=== PATIENT | male | born 1980 | race Caucasian/White ===

== ENCOUNTER 2016-09-10 23:21 | Emergency (ER) | payer OTHER ==
[~2016-09-10] VITALS: Ht 175.3 cm; Wt 86.2 kg
[2016-09-10 23:30] VITALS: BP 128/76
--- NOTE | 2016-09-11 00:16 | NUR ---
TO ER BED 1
--- NOTE | 2016-09-11 00:20 | NUR ---
36/M BIB FAMILY C/O RIGHT SHOULDER PAIN x 2200. PT STATES HE WAS PLAYING SOCCER AND LANDED ON RIGHT SHOULDER. LIMITED ROM, CAP REFILL 3<SEC. PT DENIES KO OR LOC; SKIN IS PINK/WARM/DRY; AAOX4 WITH EVEN AND STEADY GAIT; LUNGS CLEAR BL; HR EVEN AND REGULAR; PT DENIES ANY FEVER, CP, SOB, OR COUGH AT THIS TIME; PATIENT STATES PAIN OF 10/10 AT THIS TIME; VSS; PATIENT POSITIONED FOR COMFORT; HOB ELEVATED; BEDRAILS UP X2; BED DOWN. ER MD MADE AWARE OF PT STATUS.
--- NOTE | 2016-09-11 00:29 | NUR ---
Patient being evaluated by physician at bedside.
[2016-09-11] MEDS ORDERED: KETOROLAC 60 MG/2 ML VIAL IM ONE (00:35)
[2016-09-11 00:56] VITALS: BP 128/76
--- NOTE | 2016-09-11 00:58 | NUR ---
Patient discharged with v/s stable. Written and verbal after care instructions given and explained. Patient alert, oriented and verbalized understanding of instructions. Ambulatory with steady gait. All questions addressed prior to discharge. ID band removed. Patient advised to follow up with PMD. Rx of MOTRIN 800 MG given. Patient educated on indication of medication including possible reaction and side effects. Opportunity to ask questions provided and answered.
== END 2016-09-11 00:58 | disposition home or self-care (01) ==
LOC: MED 23:21
PROC: 3E033GC Introduction of Other Therapeutic Substance into Peripheral Vein, Percutaneous Approach (ICD-10-PCS; principal; 2016-09-10)
DX: S40.011A Contusion of right shoulder, initial encounter (principal); W19.XXXA Unspecified fall, initial encounter; Y93.66 Activity, soccer; Y92.89 Other specified places as the place of occurrence of the external cause
CPT/HCPCS: 73030; 96372; 99284; J1885

== ENCOUNTER 2021-02-25 06:45 | Emergency (ER) | payer MEDICAID, OTHER ==
[~2021-02-25] VITALS: Ht 175.3 cm; Wt 90.7 kg
[2021-02-25 06:52] VITALS: BP 139/87
--- NOTE | 2021-02-25 06:59 | NUR ---
patient to lobby
--- NOTE | 2021-02-25 07:00 | NUR ---
patient ambulatory to the bathroom for urine collection
--- NOTE | 2021-02-25 07:12 | NUR ---
pt brought to chair B
[2021-02-25] MEDS ORDERED: ONDANSETRON 4 MG ODT PO ONE (07:15)
[2021-02-25] MEDS ORDERED: DICYCLOMINE HCL LIQUID 20 MG, ALUMINUM HYD/MAG/SIMETHICONE 30 ML, LIDOCAINE VISCOUS 2% ... PO ONE ×3 (07:15)
[2021-02-25] MEDS ORDERED: FAMOTIDINE 20 MG TAB PO ONE (07:15)
[2021-02-25] MEDS ORDERED: ACETAMINOPHEN EXTRA STRENGTH 500 MG TAB PO ONE (07:15)
[2021-02-25] MEDS ORDERED: ALUMINUM HYD/MAG/SIMETHICONE 30 ML UDC ONE (07:22)
[2021-02-25] MEDS ORDERED: DICYCLOMINE HCL LIQUID 10 MG/5 ML UDC ONE (07:22)
--- NOTE | 2021-02-25 07:29 | NUR ---
LAB WITH PT COLLECTING BLOOD WORK
--- NOTE | 2021-02-25 07:30 | NUR ---
41 male with abdominal pain at 0300 today. patient took omeprazole with no relief. patient ate spicy foods the whole weekend and alcohol. N/V/D and some SOB. denies fevers, and difficulty breathing. feels like acid. 04/13 pain hot and churning pmh: fatty liver nka
[2021-02-25 07:36] LABS: BASOPHILS % (AUTO) 0.4 % (0.0-2.0); EOSINOPHILS # (AUTO) 0.6 K/uL (0-0.4); EOSINOPHILS % (AUTO) 4.8 % (0.0-4.0); HEMATOCRIT 46.3 % (36-52); HEMOGLOBIN 15.8 g/dL (12.0-18.0); LYMPHOCYTES # (AUTO) 2.3 K/uL (2.0-11.5); LYMPHOCYTES % (AUTO) 18.2 % (20.5-51.1); MEAN CORPUSCULAR HEMOGLOBIN 31 pg (27-31); MEAN CORPUSCULAR HGB CONC 34 g/dL (33-37); MEAN CORPUSCULAR VOLUME 90.6 fL (80-94); MONOCYTES # (AUTO) 0.8 K/uL (0.8-1.0); MONOCYTES % (AUTO) 6.2 % (1.7-9.3); NEUTROPHILS # (AUTO) 8.8 K/uL (1.8-7.7); NEUTROPHILS % (AUTO) 70.4 % (42.2-75.2); PLATELET COUNT (AUTO) 275 K/uL (140-450); RED BLOOD CELL COUNT(AUTO) 5.11 MIL/uL (4.20-6.10); RED CELL DISTRIBUTION WIDTH 13.5 % (11.6-13.7); WHITE BLOOD COUNT (AUTO) 12.5 K/uL (4.8-10.8)
[2021-02-25] MEDS ORDERED: MAG355OR2 PO (07:46)
[2021-02-25] MEDS ORDERED: ONDA-24 PO (07:47)
[2021-02-25] MEDS ORDERED: FAMO-90 PO (07:47)
[2021-02-25 07:51] LABS: ALBUMIN 4.2 g/dL (3.4-5.0); ANION GAP 11.2 (8-16); CARBON DIOXIDE 30.2 mmol/L (21-32); CREATININE 0.9 mg/dL (0.6-1.3); POTASSIUM 4.4 mmol/L (3.5-5.1); TOTAL BILIRUBIN 0.7 mg/dL (0.0-1.0)
[2021-02-25 08:06] VITALS: BP 139/87
--- NOTE | 2021-02-25 08:06 | NUR ---
Patient discharged with v/s stable. Written and verbal after care instructions given and explained. Patient alert, oriented and verbalized understanding of instructions. Ambulatory with steady gait. All questions addressed prior to discharge. ID band removed. Patient advised to follow up with PMD. Rx of pepcid, zofran, and mag hydrox/al hydrox/simeth given. Patient educated on indication of medication including possible reaction and side effects. Opportunity to ask questions provided and answered.
== END 2021-02-25 08:06 | disposition home or self-care (01) ==
LOC: MED 06:45
DX: K29.70 Gastritis, unspecified, without bleeding (principal); K21.9 Gastro-esophageal reflux disease without esophagitis
CPT/HCPCS: 36415; 80053; 83690; 85025; 99284; Q0162

== ENCOUNTER 2021-08-16 21:31 | Emergency (ER) | payer MEDICAID ==
[~2021-08-16 21:31] MED LIST: FAMO-90 PO; MAG355OR2 PO; ONDA-188 PO
--- NOTE | 2021-08-16 21:49 | NUR ---
called in lobby, outside and tent no answer.
--- NOTE | 2021-08-16 21:58 | NUR ---
called in lobby, outside and tent no answer.
--- NOTE | 2021-08-16 22:07 | NUR ---
called in lobby, outside and tent no answer.
--- NOTE | 2021-08-16 22:12 | NUR ---
called pt's number on file, stated he left.lwbs
[2021-08-17] MEDS ORDERED: NAPR-54 PO (13:24)
== END 2021-08-16 22:12 | disposition left against medical advice (07) ==
LOC: MED 21:31
DX: Z53.21 Procedure and treatment not carried out due to patient leaving prior to being seen by health care provider (principal)

== ENCOUNTER 2021-08-17 11:02 | Emergency (ER) | payer MEDICAID ==
[~2021-08-17] VITALS: Ht 175.3 cm; Wt 91.6 kg
[2021-08-17 11:41] VITALS: BP 141/90
[2021-08-17] MEDS ORDERED: KETOROLAC 30 MG/ML VIAL IM ONE (12:35)
[2021-08-17] MEDS ORDERED: NAPR-54 PO (13:24)
--- NOTE | 2021-08-17 13:30 | NUR ---
Patient discharged with v/s stable. Written and verbal after care instructions ABOUT AKLE PAIN given and explained. Patient alert, oriented and verbalized understanding of instructions. Ambulatory with steady gait. All questions addressed prior to discharge. ID band removed. Patient advised to follow up with PMD. Rx of NAPROXEN given. Patient educated on indication of medication including possible reaction and side effects. Opportunity to ask questions provided and answered.
--- NOTE | 2021-08-17 13:34 | NUR ---
41 y/o male, pt states he fell down stairs yesterday and injured right ankle radiates to foot. denies loc, syncope, or head/neck injury. pt ambulates with pain, cap refill <3, no visible deformity, sensations intact. pt is able to flex, extend foot, but can not abduct or adduct foot. pmh: denies nka med: advil 2 po (little relief)
== END 2021-08-17 13:30 | disposition home or self-care (01) ==
LOC: MED 11:02
DX: S93.401A Sprain of unspecified ligament of right ankle, initial encounter (principal); K21.9 Gastro-esophageal reflux disease without esophagitis; Z79.899 Other long term (current) drug therapy; Z98.890 Other specified postprocedural states; W01.0XXA Fall on same level from slipping, tripping and stumbling without subsequent striking against object, initial encounter; Y93.01 Activity, walking, marching and hiking; Y92.89 Other specified places as the place of occurrence of the external cause; Y99.8 Other external cause status
CPT/HCPCS: 73610; 73630; 96372; 99284; J1885